=== PATIENT | female | born 1965 | race Two or more races ===

== ENCOUNTER 2024-07-15 09:50 | Outpatient (AMB) | payer MEDICAID, SELFPAY ==
[2024-07-15 10:14] VITALS: BP 127/83; PULSE 86; RESP 18; TEMP 36.4; O2SAT 97; BMI 46.3
--- NOTE | 2024-07-15 10:14 | PD.ORTHCLVIS ---
Vital signs 07/15/24 10:14 Height 1.6 m Height Method Stated Weight 118.614 kg Weight Measurement Method Standing Scale BMI 46.3 BP 127/83 Blood Pressure Source Automatic Cuff Blood Pressure Location Left Upper Arm Position Sitting Respiration 18 Pulse 86 Pulse Source Monitor Temp 97.6 F Temp Source Temporal Artery Scan Pulse Oximetry (%) 97 Oxygen Delivery Method Room Air Med/Allergies Allergies & Medications Allergies Penicillins Allergy (Verified 07/15/24 10:14) Medication Reconciliation Unobtainable 07/15/24 [History Confirmed 07/15/24] Exam Exam Patient is in no acute distress and is cooperative with the examination today. Breathing is nonlabored. Patient has a normal mood and affect. Bilateral extremities were evaluated and demonstrates sensation intact to light touch. Palpable pedal pulses are present. No significant edema is present. Bilateral hips were examined. The patient has no pain with log roll of the hips. Internal rotation to 30 degrees and external rotation to 30 degrees is painless. Negative FADIR. Right knee was examined today. The right knee is in reasonable alignment. Range of motion from 0-120 degrees. Knee is stable to varus and valgus as well as AP translation with <5mm. Patient has a negative McMurrays. There is no pain with patellofemoral compression and no crepitus noted. The knee is nontender to palpation. Left knee was examined today. The left knee is in varus alignment. Range of motion from 0-115 degrees. Knee is stable to varus and valgus as well as AP translation with <5mm. Patient has a negative McMurrays. There is no pain with patellofemoral compression and no crepitus noted. The knee is tender to palpation medially. X-rays were reviewed. This demonstrates Moderate obliteration of the medial joint space Assessment and Plan Problem List (1) Degenerative arthritis of knee, bilateral: Status: Acute Plan: Patient is a 59-year-old female with bilateral knee arthritis worse on the left. Is of moderate severity. We had a very lengthy conversation today. I discussed with her that she does have significant arthritis of the left knee. We discussed the weight loss as a reasonable and prudent option. We discussed that she is at high risk for medical complications at her current BMI and I would recommend losing weight. We discussed that we could do a total knee replacement if she were to lose weight she is not optimized medically at this time In addition, she reports that is very difficult for her to drive an hour and a half in 3 hours roundtrip. I discussed with her that she should get care locally if possible especially as she will need multiple visits Office Procedures GNS Level of Care Nursing/Assessment Patient Status: Initial/New Patient Nursing Assessment/Reassesment: Medication Reconciliation, Update PMH in EMR and Vital Signs Coordination of Care: Complex Care and Chronic Disease 1-5, Education Complex Pt/Fam, Consent,records obtained, informed consent, 1 Ins Authorization, Lab and Imaging orders, Results/Orders obtained and Staff clarify orders New Patient Charge New Patient Point Assignment: 1124 New Patient Point Charge: PRINCIPAL INVESTIGATOR Level 4 ([id number]) MA Intake Visit Data Collection New Patient or Established: New Patient (never been to [facility]) Reason for Visit:: LEFT KNEE PAIN-2ND OPINION Seen by Clinical Staff ONLY (RN/MA): No Subcontracts Manager Required: No PCP or OBGYN visit in last 3 months: Yes Hx Now: No Do You Feel Safe at Home: Yes Authorities Contacted: N/A Questionairres Past Medical History Past Medical History Have you ever been diagnosed with any of the following: Respiratory Problems Smoking: No Smoking Cessation Counseling: No Smoking Exposure: No Subjective Visit Visit for: new patient and knee (LEFT) Immunization / Flu Flu Vaccine in the Last 12 Months: No Flu Vaccine Exclusion Criteria: Refused by Patient History of Present Illness Chief complaint: Bilateral knee pain Olinda is a pleasant 59-year-old female with left greater than right knee pain. This is been ongoing for quite a while. She has had multiple injections and anti-inflammatories as well as physical therapy in the past. The pain is affecting her quality life and happiness. She is driving here from [place] a half away. She saw prior orthopedic surgeon locally and she is here for second opinion. Pain Pain level (0-10): 8 Pain duration: CONSTANT Pain location: inside (medial), outside (lateral) and anterior Pain quality: sharp, dull and aching Pain timing: increases with activity and stairs Associated signs & symptoms: numbness, weakness and stiffness Ambulatory data Ambulatory device: none Treatments Number of previous injections: 10 Improvement with previous injections: No Number of Physical Therapy sessions: 24 Improvement with PT: No Improvement with NSAIDS: no Review of Systems Review of Systems: All systems negative unless otherwise noted in HPI.
== END 2024-07-15 10:55 | disposition home or self-care (01) ==
PROVIDERS: PCP Specialist; Referring Provider Specialist; Supervising Provider Orthopaedic Surgery Adult Reconstructive Orthopaedic Surgery; Visit Provider Orthopaedic Surgery Adult Reconstructive Orthopaedic Surgery
DX: M17.0 Bilateral primary osteoarthritis of knee (principal)
CPT/HCPCS: 99204; G0463